=== PATIENT | male | born 1990 | race Caucasian/White ===

== ENCOUNTER 2018-02-27 07:56 | Day surgery (SDC) | payer BC ==
[2018-02-27] MEDS: OXYMETAZOLINE HCL 0.05% 15ML NAS ONE ×5 (08:25→09:54)
[2018-02-27] MEDS ORDERED: Ringers Lactate 1,000 ML IV ONE (08:30)
[2018-02-27] MEDS ORDERED: NA CHLORIDE 0.9% 250 ML ONE ×2 (08:44→09:07)
[2018-02-27] MEDS ORDERED: LIDOCAINE 1% W/EPI 1:100,000 MDV 50 ML VIAL ONE (08:45)
[2018-02-27] MEDS ORDERED: FENTANYL CITR 100 MCG/2 ML ONE (08:50)
[2018-02-27] MEDS ORDERED: PROPOFOL 200 MG/20 ML VIAL IV ONE (08:50)
[2018-02-27] MEDS ORDERED: ROCURONIUM 50 MG/5 ML VIAL IV ONE (08:51)
[2018-02-27] MEDS ORDERED: LIDOCAINE 2% MPF 5 ML VIAL ONE (08:51)
[2018-02-27] MEDS ORDERED: ONDANSETRON HCL 40 MG/20 ML VIAL ONE (08:52)
[2018-02-27] MEDS ORDERED: MIDAZOLAM HCL 2 MG/2 ML INJ ONE (08:52)
[2018-02-27] MEDS ORDERED: OXYMETAZOLINE HCL 0.05% 15ML NAS ONE (09:06)
[2018-02-27] MEDS ORDERED: DEXAMETHASONE 10 MG/ML VIAL ONE (09:39)
--- NOTE | 2018-02-27 10:12 | P.BOP ---
Preoperative diagnosis: recurrent sinusitis, turbinate hypertrophy, nasal obstruction Postoperative diagnosis: same Primary procedure: B frontal, sphenoid and maxillary balloon dilation Secondary procedure: submucosal ITR Estimated blood loss: 15ml Specimen: none Anesthesia: General Complications: None Implants: gelfoam packing to both nostrils Fluids & blood products: crystalloid 400ml Transferred to: Recovery Room Condition: Good
[2018-02-27] MEDS ORDERED: LABETALOL 20 MG/4ML SYRINGE IV ONE (10:17)
[2018-02-27] MEDS ORDERED: GLYCOPYRROLATE 0.2 MG/ML SYR ONE (10:18)
[2018-02-27] MEDS ORDERED: LABETALOL HCL 100 MG/20 ML ONE (11:24)
[2018-02-27] MEDS ORDERED: LABETALOL HCL 100 MG/20 ML IV ONE (11:46)
--- NOTE | 2018-02-27 12:42 | OP ---
Surgeon: Franny Weathers MD Preoperative Diagnoses: Recurrent sinusitis and inferior turbinate hypertrophy. Nasal obstruction. Postoperative Diagnoses: Recurrent sinusitis and inferior turbinate hypertrophy. Nasal obstruction. Procedure: Bilateral nasal endoscopy with frontal, sphenoid, and maxillary sinus balloon dilation an d submucosal inferior turbinate resection. Indication For Procedure: Mr. Mancuso is a 27-year-old, treated with maximal medical therapy for chroni c sinusitis/recurrent acute sinusitis by the audiovisual librarian. His postoperative CT demonstrated large turb inates with minimal improvement using intranasal steroid sprays for prolonged period of time. The si nus outflow tracts were noted to be significantly narrowed contributing to the recurrence and persist ence of his infections. In addition, he underwent allergy testing with Dr. Mcnair, which was negativ e. The risks, benefits, and alternatives to the procedure were discussed with the patient, who agree d to proceed. Description Of Procedure: The patient was brought to the operating room. He was placed under genera l anesthesia via oral endotracheal tube. The head of bed was turned 90 degrees and the nasal cavity was examined using a headlight and nasal speculum. The nasal hairs had been previously trimmed by th e patient and the inferior turbinates were well decongested with Afrin. A 0-degree endoscope was use d to perform a nasal endoscopy. The balloon device was configured for appropriate use in the frontal sinuses and was advanced under endoscopic guidance into the left middle meatus and was advanced adebayo g the posterior aspect of the uncinate process and advanced without difficulty into the frontal sinus and confirmation of location was performed by brilliant illumination of the frontal sinus. The ball oon was then advanced over the guide and inflated. The balloon was then deflated, advanced slightly further into the sinus, reinflated and deflated, and carefully removed. A similar procedure was perf ormed on the right side. The balloon device was then reconfigured for use in the sphenoid sinus. Us ing the 0-degree endoscope, the device was advanced into the sphenoethmoid recess and the sphenoid os cannulated by palpation. The balloon device was advanced over the guide and inflated for dilation o f the sphenoid ostium. A similar procedure was performed on the contralateral side. The device was then withdrawn and reconfigured to 135 degrees angle for use in the maxillary sinus under endoscopic guidance, the device was advanced through the left maxillary infundibulum, inflated with good mediali zation of the uncinate process. The device was then carefully rotated out of the middle meatus and s imilar procedure was performed on the contralateral side. The nasal cavity was suctioned from small amount of blood and preparations were made for performance of the inferior turbinate resection. The head of the middle turbinate was injected with 1% lidocaine with epinephrine. A total of 2.5 mL were used. A 15-blade scalpel was used to make a stab incision in the head of the inferior turbinate and a submucosal pocket was created by elevation with a Zane elevator. The microdebrider was then use d to perform submucosal resection of excess soft tissue. Once adequate resection was made, the infer ior turbinates were down fractured to optimize the nasal airway. The nasal cavity was thoroughly suc tioned and a compressed Gel-Foam dissolvable sponge was placed in the bilateral nasal cavity to aid i n hemostasis from the mucosal incisions of the inferior turbinates. The patient was then returned to care of Anesthesia for awakening and extubation in the operating room, which proceeded without diffi culty. Complications: None. Specimens: None. Disposition: The patient will be discharged home later today and follow up with Dr. Weathers in 10-14 days. BREANNE/KARI Voice ID: [id number] Report ID: [id number]
== END 2018-02-27 12:50 | disposition home or self-care (01) ==
LOC: OR 07:56
PROVIDERS: ATTEND Otolaryngology
PROC: 09QW8ZZ Repair Right Sphenoid Sinus, Via Natural or Artificial Opening Endoscopic (ICD-10-PCS; 2018-02-27)
PROC: 09QX8ZZ Repair Left Sphenoid Sinus, Via Natural or Artificial Opening Endoscopic (ICD-10-PCS; 2018-02-27)
PROC: 09QQ8ZZ Repair Right Maxillary Sinus, Via Natural or Artificial Opening Endoscopic (ICD-10-PCS; 2018-02-27)
PROC: 09QR8ZZ Repair Left Maxillary Sinus, Via Natural or Artificial Opening Endoscopic (ICD-10-PCS; 2018-02-27)
PROC: 09QS8ZZ Repair Right Frontal Sinus, Via Natural or Artificial Opening Endoscopic (ICD-10-PCS; 2018-02-27)
PROC: 09BL8ZZ Excision of Nasal Turbinate, Via Natural or Artificial Opening Endoscopic (ICD-10-PCS; 2018-02-27)
PROC: 09QT8ZZ Repair Left Frontal Sinus, Via Natural or Artificial Opening Endoscopic (ICD-10-PCS; principal; 2018-02-27 10:00)
DX: J32.9 Chronic sinusitis, unspecified (principal); J34.3 Hypertrophy of nasal turbinates; R09.81 Nasal congestion; G47.19 Other hypersomnia; I10 Essential (primary) hypertension; E78.00 Pure hypercholesterolemia, unspecified; Z82.49 Family history of ischemic heart disease and other diseases of the circulatory system
CPT/HCPCS: J1100; J2250; J2405; J2704; J3010